=== PATIENT | female | born 1995 | race Caucasian/White ===

== ENCOUNTER → 2021-04-16 | Outpatient (CLI) | payer OTHER ==
--- NOTE | 2021-04-16 13:34 | REP ---
INDICATION: PREG, INCOMPLETE VIABILITY IN OFFICE,SPOTTING. COMPARISON: None. TECHNIQUE: Transvesical and transvaginal imaging FINDINGS: The uterus measures 9 x 4.4 x 6.9 cm. Within the uterus there is an anechoic structure with increased echoes surrounding it consistent with a decidual reaction. Within the gestational sac there is a tiny anechoic structure consistent with a yolk sac. The mean gestational sac diameter is consistent with a 5 week 2 day gestational age. There is no echogenic material within the gestational sac that would be considered consistent with a pole. Doppler interrogation of the gestational sac shows no evidence of cardiac activity. Right ovary measures 3.7 x 2.3 x 2.6 cm and is within normal limits with an RI 0.60. A resolving likely corpus luteum cyst is identified. Left ovary measures 4.7 x 1.7 x 2.5 cm and is within normal limits. There is a small amount of free fluid in the cul-de-sac and right adnexa. IMPRESSION: Early OB ultrasound as described above. Since no pole is identified the finding suggests early stage or possibly spontaneous . This needs to be correlated clinically with appropriate follow-up. <Electronically signed by Ian Millan > 04/16/21 1814
== END ==
LOC: M RAD 12:25
PROVIDERS: ATTEND Obstetrics & Gynecology
DX: O26.851 Spotting complicating pregnancy, first trimester (principal)

== ENCOUNTER 2021-05-02 19:55 | Emergency (ER) | payer OTHER ==
[~2021-05-02] VITALS: Ht 152.4 cm; Wt 51.2 kg
[2021-05-03 00:08] LABS: BASO # 0.1 10^3/uL (0.0-0.2); BASO % 0.4 % (0.0-1.0); EOS % 0.1 % (0.0-3.0); HEMATOCRIT 39.1 % (36.0-47.0); HEMOGLOBIN 13.6 g/dl (12.0-15.5); LYMPH # 2.6 10^3/uL (1.5-5.0); MEAN CORPUSCULAR HEMOGLOBIN 31.6 pg (27.0-33.0); MEAN CORPUSCULAR HGB CONC 34.8 g/dl (32.0-36.5); MEAN CORPUSCULAR VOLUME 90.9 fl (80.0-96.0); MONO # 0.7 10^3/uL (0.0-0.8); MONO % 4.9 % (2.0-8.0); NEUTROPHILS # 10.8 10^3/uL (1.5-8.5); NEUTROPHILS % 76.2 % (36.0-66.0); PLATELET COUNT, AUTOMATED 320 10^3/uL (150-450); WHITE BLOOD COUNT 14.2 10^3/uL (4.0-10.0)
[2021-05-03 00:21] LABS: BLOOD UREA NITROGEN 13 MG/DL (7-18); CALCIUM LEVEL 9.1 MG/DL (8.5-10.1); CARBON DIOXIDE LEVEL 26 MEQ/L (21-32); CHLORIDE LEVEL 103 MEQ/L (98-107); CREATININE FOR GFR 0.68 MG/DL (0.55-1.30); GLOMERULAR FILTRATION RATE > 60.0 (>60); GLUCOSE, FASTING 83 MG/DL (70-100); HCG, SERUM QUANTITATIVE 54418 MIU/ML; POTASSIUM SERUM 4.2 MEQ/L (3.5-5.1); SODIUM LEVEL 137 MEQ/L (136-145)
--- NOTE | 2021-05-03 01:26 | REPVR ---
PROCEDURE INFORMATION: Exam: US First Trimester, Transabdominal Exam date and time: 05/03/2021 12:27 AM Age: 25 years old Clinical indication: Lmp or gestational age (in weeks): 03/11/21; Antepartum complications; Bleeding; ; Additional info: Vag bleeding, 7 wks preg TECHNIQUE: Imaging protocol: Real-time transabdominal obstetrical ultrasound of the maternal pelvis and a first trimester , less than 14 weeks 0 days, with image documentation. COMPARISON: No relevant prior studies available. FINDINGS: Gestation: Intrauterine gestational sac with pole and yolk sac. Embryonic/ heart rate: heartbeat of 158 bpm. Extra-embryonic membranes/Placenta: Small subchorionic hemorrhage measuring 16 x 17 x 21 mm. Amniotic fluid: Amniotic fluid is normal for gestational age. BIOMETRY: Avimor-Rump length: Avimor-rump length is 12.5 mm suggesting an age of 7 weeks 4 days. The EDC is 12/16/2021. MATERNAL: Uterus: Unremarkable. Cervix: Unremarkable. Right adnexa: The right ovary measures 2.4 x 3.1 x 2.2 cm and demonstrates a 9 mm follicle. There is normal right ovarian arterial and venous blood flow. Left adnexa: The left ovary measures 2.0 x 3.2 x 1.8 cm and demonstrates arterial and venous blood flow. IMPRESSION: 1. Early single live intrauterine gestation with an estimated age of 7 weeks 4 days. The EDC is 12/16/2021. 2. Subchorionic hemorrhage at the caudal aspect measuring 16 x 17 x 21 mm. Electronically signed by: Channing Chadwick On 05/03/2021 01:25:51 AM
[2021-05-03] MEDS ORDERED: ACETAMINOPHEN 500 MG TAB PO ONE (01:45)
[2021-05-03 02:22] VITALS: BP 123/56
== END 2021-05-03 02:28 | disposition home or self-care (01) ==
LOC: M ED 19:55
DX: O46.91 Antepartum hemorrhage, unspecified, first trimester (principal); O20.8 Other hemorrhage in early pregnancy; Z3A.01 Less than 8 weeks gestation of pregnancy

== ENCOUNTER 2021-07-23 12:24 | Day surgery (SDC) | payer OTHER ==
[~2021-07-23 12:24] MED LIST changes: -ACET-683 PO; +ACETAMINOPHEN 1000MG 100ML IV BTL (OFIRMEV) (J0131 PER 10MG) As Ordered ONE; -IBUP-1022 PO; +LIDOCAINE 2% 100MG/5ML SDV (FOR ANES.) As Ordered ONE; -MULTTAB20 PO; +ONDANSETRON 4MG/2ML VIAL As Ordered ONE; +PHENYLephrine 500MCG 5ML (100MCG/ML) SYRINGE As Ordered ONE; +ROCURONIUM BROMIDE 50 MG/5 ML VIAL As Ordered ONE; +SUCCINYLCHOLINE 100 MG/5 ML SYRINGE (J0330) As Ordered ONE; +dexameTHASONE 4 MG/ML 1ML VIAL (J1100 PER 1MG) As Ordered ONE; +ePHEDrine SULFATE 25 MG/5 ML(5MG/ML) SYRINGE As Ordered ONE; +fentaNYL 100 MCG/2 ML INJECTION (J3010) As Ordered ONE; +propofoL 200 MG/20 ML VIAL As Ordered ONE
[2021-07-23 12:49] LABS: HEMATOCRIT 25.2 % (36.0-47.0); HEMOGLOBIN 8.5 g/dl (12.0-15.5); MEAN CORPUSCULAR HEMOGLOBIN 32.3 pg (27.0-33.0); MEAN CORPUSCULAR HGB CONC 33.7 g/dl (32.0-36.5); MEAN CORPUSCULAR VOLUME 95.8 fl (80.0-96.0); PLATELET COUNT, AUTOMATED 209 10^3/uL (150-450); RED BLOOD COUNT 2.63 10^6/uL (4.00-5.40); WHITE BLOOD COUNT 13.8 10^3/uL (4.0-10.0)
--- NOTE | 2021-07-23 13:21 | POST-OPPD ---
Postoperative Procedure Note Date Of Procedure: Jul 23, 2021 Time Of Procedure: 11:56 DATE OF PROCEDURE: 07/23/21 PREPROCEDURE DIAGNOSES: - 19 weeks gestation, live intrauterine - cervical insufficiency POSTPROCEDURE DIAGNOSES: -19 weeks gestation, live intrauterine - cervical insufficiency - status post cerclage placement PROCEDURE PERFORMED: Thomas cervical cerclage placement. SURGEON: Miguel Weber DO BANDOLEER PACKER: Luis Antonio Martinez DO ANESTHESIA: general ESTIMATED BLOOD LOSS: Approximately 30 mL. COMPLICATIONS: none REMARKS: none FINDINGS: intraoperative: visually dilated cervix 2-3cm, apparent parts at the external os; postprocedure: cervix visually closed, 0-prolene knot at 12 o'clock, at east 2cm tail; transabdominal ultrasound reveals single intrauterine , + cardiac activity 140 beats per minute, maximum vertical pocket of 2.5cm SPECIMENS REMOVED: none PROCEDURE NOTE: see below DESCRIPTION OF PROCEDURE: After obtaining informed consent the patient was taken to the operating suite and prepped/draped in the usual fashion. General anesthesia was utilized. A timeout was called and the patient name, date of and procedure to be perfo rmed were verified. The bladder was drained via straight catheter. A weighted speculum was placed vaginally. The cervix was brought into view and the cervical os was visually dilated to 2-3cm with apparent parts at the external os. Laparoscopic soft blunt probes were utilized to gently replace the uterine contents. A pa urinary catheter was then placed through the cervical os and inflated to 5cc to hold in the uterine contents and the laparoscopic blunt probes removed. A 0-prolene suture was utilized to make a pursetring stitch starting at the 12 o clock position and ran around the cervix counter clockwise, avoiding the cervical vessels at 3 and 9 o'clock. The suture was then tied and the pa deflated and removed. The cervix was then noted to be closed. All instruments were removed from the vagina. A transabdominal ultrasound was performed noting a single intrauterine , + cardiac activity 140 beats per minute, maximum vertical pocket of 2.5cm. Office testing for rupture of membranes earlier today was negative and the postprocedure fluid levels were comparable to preprocedural. At this time there is no evidence for rupture of membranes. The patient was awakened from anesthesia and taken to the recovery room in good condition. I spoke to the regarding the procedure and the plan for this . He indicated understanding and all questions were answered. DO NILESH Laura BRADLEY J. DO Jul 23, 2021 13:21
[2021-07-23] MEDS ORDERED: LR 1,000 ML IV SCH (13:25)
[2021-07-23] MEDS ORDERED: ONDANSETRON 4MG/2ML VIAL IV PRN (13:25)
[2021-07-23] MEDS ORDERED: MEPERIDINE INJ 25 MG/ML VIAL (J2175) IV PRN (13:25)
[2021-07-23] MEDS ORDERED: fentaNYL 100 MCG/2 ML INJECTION (J3010) IV PRN (13:25)
[2021-07-23 13:29] LABS: ALBUMIN 2.3 GM/DL (3.2-5.2); ALT/SGPT 20 U/L (12-78); BILIRUBIN,TOTAL 0.1 MG/DL (0.2-1.0); BLOOD UREA NITROGEN 8 MG/DL (7-18); CALCIUM LEVEL 8.3 MG/DL (8.5-10.1); CARBON DIOXIDE LEVEL 23 MEQ/L (21-32); CHLORIDE LEVEL 107 MEQ/L (98-107); CREATININE FOR GFR 0.47 MG/DL (0.55-1.30); GLOMERULAR FILTRATION RATE > 60.0 (>60); GLUCOSE, FASTING 86 MG/DL (70-100); POTASSIUM SERUM 3.8 MEQ/L (3.5-5.1); SODIUM LEVEL 137 MEQ/L (136-145); TOTAL PROTEIN 5.2 GM/DL (6.4-8.2)
[2021-07-23 14:30] VITALS: BP 114/64
[2021-07-24] MEDS ORDERED: ACET-683 PO ×2 (20:23)
[2021-07-24] MEDS ORDERED: MULTTAB20 PO (20:23)
== END 2021-07-23 14:07 | disposition home or self-care (01) ==
LOC: M SDC 12:24
PROVIDERS: ATTEND Obstetrics & Gynecology
DX: O34.32 Maternal care for cervical incompetence, second trimester (principal); Z3A.19 19 weeks gestation of pregnancy
CPT/HCPCS: 59320; 80053; 85027; 86850; 86870; 86900; 86901; J0131; J0330; J1100; J2370; J2405; J3010; U0002

== ENCOUNTER → 2021-07-23 | Outpatient (REF) | payer OTHER ==
[~2021-07-23] MED LIST: ACET-683 PO; IBUP-1022 PO; MULTTAB20 PO
== END ==
LOC: M LAB REF 12:02
PROVIDERS: ATTEND Obstetrics & Gynecology
DX: Z11.52 Encounter for screening for COVID-19 (principal)

== ENCOUNTER 2021-07-24 18:38 | Emergency (ER) | payer OTHER ==
[~2021-07-24] VITALS: Ht 152.4 cm; Wt 51.3 kg
[2021-07-24 18:40] VITALS: BP 131/58
[2021-07-24] MEDS ORDERED: LR 1,000 ML IV ONE (20:15)
[2021-07-24] MEDS ORDERED: MULTTAB20 PO (20:23)
[2021-07-24] MEDS ORDERED: ACET-683 PO (20:23)
[2021-07-24 20:24] LABS: BASO # 0.1 10^3/uL (0.0-0.2); BASO % 0.3 % (0.0-1.0); EOS % 0.2 % (0.0-3.0); HEMATOCRIT 29.1 % (36.0-47.0); LYMPH # 2.7 10^3/uL (1.5-5.0); LYMPH % 16.2 % (24.0-44.0); MEAN CORPUSCULAR HEMOGLOBIN 32.6 pg (27.0-33.0); MEAN CORPUSCULAR HGB CONC 34.4 g/dl (32.0-36.5); MEAN CORPUSCULAR VOLUME 94.8 fl (80.0-96.0); MONO # 0.8 10^3/uL (0.0-0.8); MONO % 4.5 % (2.0-8.0); NEUTROPHILS # 13.2 10^3/uL (1.5-8.5); NEUTROPHILS % 78.2 % (36.0-66.0); PLATELET COUNT, AUTOMATED 242 10^3/uL (150-450); RED BLOOD COUNT 3.07 10^6/uL (4.00-5.40); WHITE BLOOD COUNT 16.8 10^3/uL (4.0-10.0)
[2021-07-24] MEDS ORDERED: HOME MED LIST COMPLETE! XX SCH (20:25)
[2021-07-24 21:59] LABS: RSV AMPLIFICATION NEGATIVE (NEGATIVE)
[2021-07-24] MEDS ORDERED: ceFAZolin 1GM VIAL (J0690 PER 500MG) IV ONE (22:10)
[2021-07-24] MEDS ORDERED: ACETAMINOPHEN 650 MG SUPP PR ONE (22:15)
--- NOTE | 2021-07-24 22:38 | REPVR ---
PROCEDURE INFORMATION: Exam: US , Limited Exam date and time: 07/24/2021 7:59 PM Age: 26 years old Clinical indication: Pain; Gestational age or lmp: 19wks; ; Prior surgery; Surgery date: Post-operative (0-2 days); Surgery type: Emergency cerlage; Additional info: Vaginal bleeding TECHNIQUE: Imaging protocol: Real-time ultrasound of the maternal uterus with image documentation. Exam focused on the clinical indication. COMPARISON: No relevant prior studies available. FINDINGS: Gestation: Intrauterine gestation. presentation: Breech presentation. heart rate: heart rate 170 bpm. Placenta: Fundal grade 0 placenta. No previa. Amniotic fluid: Anhydramnios. MATERNAL: Cervix: Cervix appears open. IMPRESSION: 1. Cervix appears open. 2. Anhydramnios. Question premature rupture of membranes. 3. Breech presentation. Electronically signed by: Andrei Luis On 07/24/2021 22:37:14 PM
== END 2021-07-24 21:24 | disposition admitted as inpatient to this hospital (09) ==
LOC: M ED 18:38
DX: O60.02 Preterm labor without delivery, second trimester (principal); Z3A.19 19 weeks gestation of pregnancy; O34.32 Maternal care for cervical incompetence, second trimester; O32.1XX0 Maternal care for breech presentation, not applicable or unspecified; O41.8X20 Other specified disorders of amniotic fluid and membranes, second trimester, not applicable or unspecified

== ENCOUNTER 2021-07-24 21:11 | Day surgery (SDC) | payer OTHER ==
[~2021-07-24] VITALS: Ht 152.4 cm; Wt 53.0 kg
[~2021-07-24 21:11] MED LIST changes: +ACET-683 PO; -ACETAMINOPHEN 1000MG 100ML IV BTL (OFIRMEV) (J0131 PER 10MG) As Ordered ONE; -LIDOCAINE 2% 100MG/5ML SDV (FOR ANES.) As Ordered ONE; +MULTTAB20 PO; -ONDANSETRON 4MG/2ML VIAL As Ordered ONE; -PHENYLephrine 500MCG 5ML (100MCG/ML) SYRINGE As Ordered ONE; -ROCURONIUM BROMIDE 50 MG/5 ML VIAL As Ordered ONE; -SUCCINYLCHOLINE 100 MG/5 ML SYRINGE (J0330) As Ordered ONE; -dexameTHASONE 4 MG/ML 1ML VIAL (J1100 PER 1MG) As Ordered ONE; -ePHEDrine SULFATE 25 MG/5 ML(5MG/ML) SYRINGE As Ordered ONE; -fentaNYL 100 MCG/2 ML INJECTION (J3010) As Ordered ONE; -propofoL 200 MG/20 ML VIAL As Ordered ONE
[2021-07-24] MEDS ORDERED: LIDOCAINE PRES-FREE 2% 10ML AMP As Ordered ONE ×2 (21:50→22:07)
[2021-07-24] MEDS ORDERED: ceFAZolin 1GM VIAL (J0690 PER 500MG) As Ordered ONE (22:09)
[2021-07-24] MEDS ORDERED: ACETAMINOPHEN 650 MG SUPP As Ordered ONE (22:09)
[2021-07-24] MEDS ORDERED: FENTANYL 2MCG/ML ROPIVACAINE 0.2% IN 0.9% NACL 100ML IVBAG As Ordered ONE (23:00)
[2021-07-24] MEDS ORDERED: NALOXONE INJ 0.4MG/1ML VIAL (J2310 PER 1MG) IV PRN (23:10)
[2021-07-24] MEDS ORDERED: EPIDURAL/PCA KEYS XX PRN (23:10)
[2021-07-24] MEDS ORDERED: ePHEDrine SULFATE 25 MG/5 ML(5MG/ML) SYRINGE IV PRN (23:10)
[2021-07-24] MEDS ORDERED: REFRIGERATOR IV KEYS XX PRN (23:10)
[2021-07-24] MEDS ORDERED: ONDANSETRON 4MG/2ML VIAL IV PRN (23:10)
[2021-07-24] MEDS ORDERED: EPIDURAL COMMENT XX SCH (23:10)
[2021-07-24] MEDS ORDERED: diphenhydrAMINE 50MG/ML VIAL (J1200) IV PRN (23:10)
[2021-07-24] MEDS ORDERED: LACTATED RINGER'S 1000 ML IV PRN (23:10)
[2021-07-24 23:19] VITALS: BP 120/58
[2021-07-24 23:25] VITALS: BP 124/59
[2021-07-24 23:30] VITALS: BP 124/68
[2021-07-24 23:35] VITALS: BP 124/60
[2021-07-24 23:40] VITALS: BP 117/56
[2021-07-24 23:58] VITALS: BP 122/65
[2021-07-25] VITALS (67 sets, daily range): BP systolic 83–121; BP diastolic 44–68
--- NOTE | 2021-07-25 06:23 | IPNPDOC ---
Text Note Date of Service The patient was seen on 07/25/21. NOTE 07/25/21 history of cord prolapse with srom and removal cerclage . reviewed for cardiac activity by Doppler no heart confirmed by us . Plan to start pitocin VS,Fishbone, I+O VS, Fishbone, I+O Vital Signs Date Time Temp Pulse Resp B/P (MAP) Pulse Ox O2 Delivery O2 Flow Rate FiO2 07/25/21 05:00 70 18 105/58 (74) 07/25/21 01:30 98.6 Adriel Rodrigues MD Jul 25, 2021 06:23
[2021-07-25] MEDS ORDERED: OXYTOCIN DRIP 30 UNITS in IV 1 EA IV SCH ×2 (06:25→07:20)
[2021-07-25] MEDS: LR 1,000 ML IV SCH ×2 (06:40→09:21)
[2021-07-25] MEDS: FENTANYL/ROPIVACAINE/NACL BAG 100 ML EPIDURAL SCH ×2 (06:41→09:10)
--- NOTE | 2021-07-25 10:03 | RO ---
OPERATIVE NOTE DATE OF OPERATION: 07/24/2021 PREOPERATIVE DIAGNOSIS: Vaginal bleeding, cord prolapse, uterine contractions at 19 weeks and 2 days. POSTOPERATIVE DIAGNOSIS: Vaginal bleeding, cord prolapse, uterine contractions at 19 weeks and 2 days. OPERATON PROPOSED: Removal of cerclage. OPERATION PERFORMED: Removal of cerclage. SURGEON: Adriel Rodrigues MD [employer] REGISTERED NURSE: ANESTHESIA: Spinal. ESTIMATED BLOOD LOSS: 25 mL. DESCRIPTION OF PROCEDURE: After adequate time out prepped and draped in lithotomy position, Goodwin catheter in the bladder draining clear urine. Epidural in place. Acetaminophen suppository 1300 mg per rectum, Ancef in place, sequentials in place. Weighted speculum in vagina, cervix was anterior, dilated to 4. Cord was prolapsed right to the introitus. We were able to see the knot at the 12 o'clock position. This was cut releasing the suture and releasing the cervix. The cord itself was pulsatile. heart was originally felt to be 144 beats per minute. The patient was sent to recovery in good condition. cc: [facility]
--- NOTE | 2021-07-25 10:14 | RO ---
OPERATIVE NOTE DATE OF OPERATION: 07/24/2021 PREOPERATIVE DIAGNOSIS: Vaginal bleeding, cord prolapse, uterine contractions at 19 weeks and 2 days. POSTOPERATIVE DIAGNOSIS: Vaginal bleeding, cord prolapse, uterine contractions at 19 weeks and 2 days. OPERATON PROPOSED: Removal of cerclage. OPERATION PERFORMED: Removal of cerclage. SURGEON: Adriel Rodrigues MD PERSONAL CARE AID: ANESTHESIA: Spinal. ESTIMATED BLOOD LOSS: 25 mL. DESCRIPTION OF PROCEDURE: After adequate time out prepped and draped in lithotomy position, Goodwin catheter in the bladder draining clear urine. Epidural in place. Acetaminophen suppository 1300 mg per rectum, Ancef in place, sequentials in place. Weighted speculum in vagina, cervix was anterior, dilated to 4. Cord was prolapsed right to the introitus. We were able to see the knot at the 12 o'clock position. This was cut releasing the suture and releasing the cervix. The cord itself was pulsatile. heart was originally felt to be 144 beats per minute. The patient was sent to recovery in good condition. cc: [facility]
[2021-07-25] MEDS ORDERED: ceFAZolin SOD 1 GM in D5W MINI-BAG PLUS 50 ML IV ONE (14:45)
[2021-07-25] MEDS ORDERED: fentaNYL 100 MCG/2 ML INJECTION (J3010) As Ordered ONE (18:49)
[2021-07-25] MEDS ORDERED: MIDAZOLAM INJ 2MG/2ML VIAL (J2250 PER 1MG) As Ordered ONE (18:49)
[2021-07-25] MEDS ORDERED: LIDOCAINE PRES-FREE 2% 10ML AMP As Ordered ONE (18:53)
[2021-07-25] MEDS ORDERED: OXYTOCIN INJ 10 UNITS/ML VIAL (J2590) As Ordered ONE (19:14)
[2021-07-25] MEDS ORDERED: oxyCODONE 5MG TAB PO PRN (20:00)
[2021-07-25] MEDS ORDERED: fentaNYL 100 MCG/2 ML INJECTION (J3010) IV PRN (20:00)
[2021-07-25] MEDS ORDERED: METOCLOPRAMIDE INJ 10MG/2ML VIAL (J2765 PER 1) IV PRN (20:00)
[2021-07-25] MEDS ORDERED: ONDANSETRON 4MG/2ML VIAL IV PRN (20:00)
[2021-07-25] MEDS ORDERED: LR 1,000 ML IV SCH (20:00)
[2021-07-25] MEDS ORDERED: ACETAMINOPHEN 500 MG TAB PO PRN (23:25)
[2021-07-26] MEDS: IBUPROFEN 600MG TAB PO SCH ×2 (00:10→07:49)
[2021-07-26 02:08] VITALS: BP 100/52
[2021-07-26] MEDS ORDERED: RHOGAM 300 MCG (1500 IU) INJ (J2790) IM SCH (04:50)
--- NOTE | 2021-07-26 06:14 | DSES ---
DISCHARGE SUMMARY DATE OF ADMISSION: 07/24/2021 DATE OF DISCHARGE: 07/26/2021 BRIEF HISTORY: This lady is a 26-year-old 1 who was initially seen because of cervical incompetence, had an emergency cerclage. She came back through the OR with vaginal bleeding, mucousy discharge and cramping at which time was diagnosed that there was a cord prolapse in the vagina and active bleeding was encountered and contractions, therefore she was taken to the operating theater for removal of the cerclage suture. The heart remained present until 0600 hours on 07/25/2021 after which time Pitocin augmentation was performed and the patient had a spontaneous assisted delivery of a 206 gram infant with no cardiac activity. She subsequently had a retained placenta requiring manual removal in the operating theater. Throughout the entire procedure she had an epidural in place. Her admitting hemoglobin was 10.0, hematocrit 29.1 and platelets were 242,000. She is Rh negative, O and will receive RhoGAM prior to departure. Her vital signs on discharge were 100/52, respirations 18, pulse 89, temperature is 99.0. She received two grams of antibiotics throughout her course of stay in the hospital. She is basically afebrile and asymptomatic. On discharge, we discussed phlebitis, cystitis, mastitis, endometritis and cellulitis, diet, exercise, pain management, perineal and wound care. On discharge, she was normocephalic, atraumatic. Neck: Full range of motion. Pupils equal and reactive to light. Distal pulses are symmetric. No evidence of DVT, PE or superficial phlebitis. Chest is clear bilaterally at the bases. No wheezes or rhonchi. No CVA tenderness. Abdomen is soft, four quadrant bowel sounds are noted. She has moderate lochia. The uterus is well-contracted. No urgency or frequency. No nausea, vomiting, diarrhea or constipation. IMPRESSION: In summary, we have effectively a missed at 19.2 weeks. Discharged improved to follow-up in the office in two weeks time, discussion for control at that particular time. Patient was discharged improved. cc: [employer] [facility]
[2021-07-26 06:50] VITALS: BP 104/69
--- NOTE | 2021-07-26 07:18 | DSES ---
DISCHARGE SUMMARY DATE OF ADMISSION: 07/24/2021 DATE OF DISCHARGE: 07/26/2021 BRIEF HISTORY: This lady is a 26-year-old 1 who was initially seen because of cervical incompetence, had an emergency cerclage. She came back through the OR with vaginal bleeding, mucousy discharge and cramping at which time was diagnosed that there was a cord prolapse in the vagina and active bleeding was encountered and contractions, therefore, she was taken to the operating theater for removal of the cerclage suture. The heart remained present until 0600 hours on 07/25/2021 after which time Pitocin augmentation was performed and the patient has a spontaneous assisted delivery of a 206 gram with no cardiac activity. She subsequently had a retained placenta requiring manual removal in the operating theater. Throughout the entire procedure she had an epidural in place. Her admitting hemoglobin was 10.0, hematocrit 29.1 and platelets were 242,000. She is Rh negative O and will receive RhoGAM prior to departure. Her vital signs on discharge were 100/52, respirations 18, pulse 89, temperature is 99.0. She received 2 grams of antibiotics throughout her course of stay in the hospital. She is basically afebrile. She is asymptomatic. On discharge, we discussed phlebitis, cystitis, mastitis, endometritis, cellulitis, diet, exercise, pain management, perineal and wound care. On discharge, she was normocephalic, atraumatic. Neck with full range of motion. Pupils equal and reactive to light. Distal pulses are symmetric. No evidence of DVT, PE or superficial phlebitis. Chest is clear bilaterally at bases. No wheezes or rhonchi. No CVA tenderness. Abdomen is soft, four quadrant bowel sounds are noted. She has moderate lochia. The uterus is well-contracted. No urgency or frequency. No nausea, vomiting, diarrhea or constipation. In summary, we have effectively a missed at 19.2 weeks, discharged improved to follow-up in the office in two weeks time, discussion for control at that particular time. Patient was discharged improved. cc: [place] [facility]
--- NOTE | 2021-07-26 07:24 | RO ---
OPERATIVE NOTE DATE OF OPERATION: 07/25/2021 PREOPERATIVE DIAGNOSIS: Retained placenta post . POSTOPERATIVE DIAGNOSIS: Retained placenta post . OPERATION PROPOSED: Manual exploration and evacuation of the uterus. OPERATION PERFORMED: Manual exploration and evacuation of the uterus. PROCEDURE: EUA MANUAL REMOVAL OF RETAINED PLACENTA SURGEON: Adriel Rodrigues MD PULMONARY FUNCTION TECHNOLOGIST: ANESTHESIA: Epidural. ESTIMATED BLOOD LOSS: 400 mL. DESCRIPTION OF PROCEDURE: After adequate time-out, prepped and draped in the lithotomy position, a Goodwin catheter was already placed in the bladder. Sequentials in place. Previous antibiotics given. Manual exploration of the uterus and digital examination of the uterus revealed approximately 400 mL of clot. The placenta was extracted, pale surface. Membranes intact. The uterus contracted well with Pitocin. The patient was given Misoprostol 1000 mg per rectum. The uterus was placed in the normal position, well contracted, and the patient was taken to recovery in good condition. cc: Aidan Musa OB NEYD
[2021-07-26] MEDS ORDERED: IBUP-1022 PO (08:05)
--- NOTE | 2021-07-26 09:10 | IPN ---
OPERATIVE NOTE DATE OF OPERATION: 07/25/2021 This lady is a 1, para 1 who was admitted with history of vaginal bleeding, premature rupture of membranes, and removal of cerclage at 19 and 2 weeks of gestation. She was evaluated and at 0600 hours 07/25/2021 was found to have an absent heart and confirmed by ultrasound that no heart was noted. The rest of the examination revealed cord prolapse into the vagina, double footling breech into the vagina. The patient was augmented with Pitocin. Eventually, with pushing, she was able to deliver with breech extraction a 206 gm fetus which had three vessels in the cord and was nonviable, did not have any gasping or any active movements. The placenta was retained and after an appropriate time the patient was taken to the operating room for manual exploration and removal of placenta. In summary, we have a missed secondary to cord prolapse and ruptured membranes at 19.2 weeks. The patient tolerated the procedure well. Examination of the anterior, posterior and lateral gutierrez was intact. Sphincter was intact. PREOPERATIVE DIAGNOSIS: retained placenta POSTOPERATIVE DIAGNOSIS: retained placenta PROCEDURE: eua removal placenta SURGEON: Adriel Rodrigues MD [employer] APPLICATIONS DEVELOPER: ANESTHESIA: epidural DESCRIPTION OF PROCEDURE: cc: Aidan Musa OB MTDD
[2021-08-14 15:06] LABS: CHROMPC1 SEE SEPARATE REPORT
== END 2021-07-26 09:05 | disposition home or self-care (01) ==
LOC: M SDC 21:11 → M LDI 22:51 → M SDC 22:54 → M LDI 22:54 → UNDOADMIN 22:54 → UNDODISIN 07-26 09:05 → M SDC 07-26 09:05
PROVIDERS: ATTEND Obstetrics & Gynecology
DX: O42.112 Preterm premature rupture of membranes, onset of labor more than 24 hours following rupture, second trimester (principal); Z37.1 Single stillbirth; O34.32 Maternal care for cervical incompetence, second trimester; O36.4XX0 Maternal care for intrauterine death, not applicable or unspecified; O69.0XX0 Labor and delivery complicated by prolapse of cord, not applicable or unspecified; Z3A.19 19 weeks gestation of pregnancy; O64.8XX0 Obstructed labor due to other malposition and malpresentation, not applicable or unspecified
CPT/HCPCS: 36415; 59821; 59871; 76815; 84702; 85025; 85461; 86850; 86900; 86901; 87631; 88233; 88262; 88291; 88300; 88305; 96361; 96365; 96372; 96374; 96375; 96376; 99284; J0690; J2250; J2405; J2590; J2790; J3010

== ENCOUNTER 2022-04-26 13:43 | Emergency (ER) | payer OTHER ==
[~2022-04-26] VITALS: Ht 152.4 cm; Wt 54.5 kg
[~2022-04-26 13:43] MED LIST changes: +IBUP-1022 PO
[2022-04-26] MEDS ORDERED: ACETAMINOPHEN TAB 650MG DOSE (2X325MG) PO ONE (15:40)
[2022-04-26] MEDS ORDERED: NS 1,000 ML IV ONE (15:40)
[2022-04-26] MEDS ORDERED: MORPHINE 4 MG/ML 1ML VIAL/SYRINGE IV ONE (15:40)
[2022-04-26] MEDS ORDERED: ONDANSETRON 4MG 2ML VIAL IV ONE (15:40)
[2022-04-26 16:06] LABS: BASO % 0.3 % (0.0-1.0); HEMATOCRIT 41.5 % (36.0-47.0); LYMPH # 0.2 10^3/uL (1.5-5.0); LYMPH % 3.2 % (24.0-44.0); MEAN CORPUSCULAR HEMOGLOBIN 31.3 pg (27.0-33.0); MEAN CORPUSCULAR HGB CONC 33.7 g/dl (32.0-36.5); MEAN CORPUSCULAR VOLUME 92.8 fl (80.0-96.0); MONO # 0.4 10^3/uL (0.0-0.8); MONO % 5.7 % (2.0-8.0); NEUTROPHILS # 6.7 10^3/uL (1.5-8.5); NEUTROPHILS % 90.4 % (36.0-66.0); PLATELET COUNT, AUTOMATED 214 10^3/uL (150-450); RED BLOOD COUNT 4.47 10^6/uL (4.00-5.40); WHITE BLOOD COUNT 7.4 10^3/uL (4.0-10.0)
[2022-04-26 16:35] LABS: ALBUMIN 4.5 GM/DL (3.2-5.2); ALT/SGPT 24 U/L (12-78); BILIRUBIN,DIRECT 0.1 MG/DL (0.0-0.2); BILIRUBIN,TOTAL 0.4 MG/DL (0.2-1.0); BLOOD UREA NITROGEN 7 MG/DL (7-18); C REACTIVE PROTEIN QUANTITATIV 0.71 MG/DL (0.00-0.30); CALCIUM LEVEL 9.3 MG/DL (8.5-10.1); CARBON DIOXIDE LEVEL 22 MEQ/L (21-32); CHLORIDE LEVEL 106 MEQ/L (98-107); CREATININE FOR GFR 1.01 MG/DL (0.55-1.30); ERYTHROCYTE SEDIMENTATION RATE 4 mm/hr (0-20); GLOMERULAR FILTRATION RATE > 60.0 (>60); GLUCOSE, FASTING 97 MG/DL (70-100); LIPASE 81 U/L (73-393); POTASSIUM SERUM 3.5 MEQ/L (3.5-5.1); SODIUM LEVEL 135 MEQ/L (136-145)
[2022-04-26] MEDS ORDERED: PROHANCE 279.3MG/ML 15ML VIAL As Ordered ONE (17:51)
[2022-04-26] MEDS ORDERED: KETOROLAC 30 MG/ML 1ML VIAL IV ONE (21:35)
[2022-04-26] MEDS ORDERED: KETO10TAB PO (22:23)
[2022-04-26 22:35] VITALS: BP 105/50
== END 2022-04-26 22:39 | disposition home or self-care (01) ==
LOC: M ED 13:43
DX: U07.1 COVID-19 (principal); M51.27 Other intervertebral disc displacement, lumbosacral region; M54.17 Radiculopathy, lumbosacral region; Z79.899 Other long term (current) drug therapy
CPT/HCPCS: 72131; 72158; 80047; 80048; 80076; 81001; 83605; 83690; 84702; 85025; 85652; 86140; 87040; 87486; 87581; 87633; 87798; 93005; 96361; 96374; 96375; 99284; A9576; J1885; J2270; J2405

== ENCOUNTER 2023-05-30 23:17 | Emergency (ER) | payer OTHER ==
[~2023-05-30] VITALS: Ht 152.4 cm; Wt 51.4 kg
[~2023-05-30 23:17] MED LIST changes: +KETO10TAB PO
[2023-05-30 23:18] VITALS: BP 132/87; TEMP 98.9; O2SAT 98
[2023-05-31] MEDS ORDERED: IBUPROFEN 800 MG TAB PO ONE (04:00)
[2023-05-31] MEDS ORDERED: PRED20TA PO (22:45)
[2023-05-31] MEDS ORDERED: IBUP-1022 PO (22:45)
[2023-05-31] MEDS ORDERED: METH-1164 PO (22:45)
== END 2023-05-31 04:48 | disposition left against medical advice (07) ==
LOC: M ED 23:17
DX: Z53.21 Procedure and treatment not carried out due to patient leaving prior to being seen by health care provider (principal)

== ENCOUNTER 2023-05-31 16:12 | Emergency (ER) | payer OTHER ==
[~2023-05-31] VITALS: Ht 152.4 cm; Wt 51.7 kg
[2023-05-31 16:12] VITALS: TEMP 97.8
[2023-05-31] MEDS ORDERED: KETOROLAC 30 MG/ML 1ML VIAL IV ONE (19:15)
[2023-05-31] MEDS ORDERED: dexAMETHasone 20MG/5ML VIAL IV ONE (19:15)
[2023-05-31] MEDS ORDERED: methocarbamoL 500 MG TAB PO ONE (19:15)
[2023-05-31 22:40] VITALS: BP 111/84; O2SAT 99
[2023-05-31] MEDS ORDERED: PRED20TA PO (22:45)
[2023-05-31] MEDS ORDERED: METH-1164 PO (22:45)
[2023-05-31] MEDS ORDERED: IBUP-1022 PO (22:45)
== END 2023-05-31 22:52 | disposition home or self-care (01) ==
LOC: M ED 16:12
DX: M54.41 Lumbago with sciatica, right side (principal); X50.0XXA Overexertion from strenuous movement or load, initial encounter; Y99.0 Civilian activity done for income or pay
CPT/HCPCS: 72148; 84702; 96374; 96375; 99284; J1100; J1885

== ENCOUNTER → 2023-06-29 | Outpatient (CLI) | payer OTHER ==
[~2023-06-29] MED LIST changes: +METH-1164 PO; +PRED20TA PO
== END ==
LOC: M PLARAD 10:01
PROVIDERS: ATTEND Family Medicine
DX: N93.9 Abnormal uterine and vaginal bleeding, unspecified (principal); E22.1 Hyperprolactinemia; R79.89 Other specified abnormal findings of blood chemistry